=== PATIENT | male | born 1965 | race Caucasian/White ===

== ENCOUNTER 2016-12-28 09:19 | Emergency (ER) | payer OTHER ==
[~2016-12-28] VITALS: Ht 172.7 cm; Wt 83.9 kg
--- NOTE | 2016-12-28 09:19 | NUR ---
BROUGHT BACK TO BED #[address] SUTTON AT BEDSIDE UPON ARRIVAL. TRIAGED AND REPORT GIVEN TO RUPAL
[2016-12-28 09:20] VITALS: BP 152/104; PULSE 60; RESP 18; TEMP 98.1; O2SAT 97
--- NOTE | 2016-12-28 09:30 | NUR ---
Pt presents to ED c/o R sided rib pain and bruising R side s/p fall from ladder. Pt reports feeling crepitus on R ribs. Affected areas tender to touch. Pt denies med hx. # 18 gauge angiocath placed to LAC. Use of asceptic technique. Opsite placed over site. Blood return noted. Blood for lab drawn from site. Flushed with 10 cc of normal saline. No evidence of infiltration noted. Patient tolerated well.
--- NOTE | 2016-12-28 10:00 | NUR ---
Urine specimen collected sent to Lab.
[2016-12-28 10:01] LABS: BASOPHILS # (AUTO) 0.2 K/uL (0.0-0.2); BASOPHILS % (AUTO) 2.3 % (0.0-2.0); EOSINOPHILS # (AUTO) 0.3 K/uL (0.0-0.4); HEMATOCRIT 48.3 % (36-54); HEMOGLOBIN 15.4 g/dL (14.0-18.0); LYMPHOCYTES # (AUTO) 2.5 K/uL (1.0-5.5); MEAN CORPUSCULAR HEMOGLOBIN 29 pg (27-31); MEAN CORPUSCULAR HGB CONC 32 % (32-36); MEAN CORPUSCULAR VOLUME 92 fL (79.0-98.0); MONOCYTES # (AUTO) 0.9 K/uL (0.0-1.0); MONOCYTES % (AUTO) 11.5 % (1.7-9.3); NEUTROPHILS # (AUTO) 3.5 K/uL (1.8-7.7); NEUTROPHILS % (AUTO) 48.2 % (40.0-70.0); PLATELET COUNT (AUTO) 423 K/uL (130-430); RED BLOOD CELL COUNT(AUTO) 5.25 MIL/uL (4.2-6.2); RED CELL DISTRIBUTION WIDTH 13.3 % (9.0-15.0); WHITE BLOOD COUNT (AUTO) 7.4 K/uL (4.8-10.8)
[2016-12-28 10:07] LABS: CALCIUM 9.7 mg/dL (8.4-11.0); CREATININE 0.95 mg/dL (0.55-1.30); POTASSIUM 4.2 mmol/L (3.5-5.1)
[2016-12-28] MEDS ORDERED: IOHEXOL 100 ML IV ONE (10:10)
[2016-12-28 10:11] LABS: PROTHROMBIN TIME 10.4 SECS (9.5-12.5)
[2016-12-28 10:12] LABS: TOTAL BILIRUBIN 0.5 mg/dL (0.0-1.0); TOTAL PROTEIN, SERUM 8.5 g/dL (6.4-8.3)
--- NOTE | 2016-12-28 10:12 | NUR ---
TAKEN TO RADIOLOGY VIA AMBULATORY
--- NOTE | 2016-12-28 10:25 | NUR ---
Pt returned from rad dept tolerated well.
[2016-12-28 10:46] LABS: BILIRUBIN,URINE NEGATIVE (NEGATIVE); BLOOD, URINE NEGATIVE (NEGATIVE); CLARITY/URINE CLEAR (CLEAR); COLOR,URINE YELLOW (YELLOW); GLUCOSE,URINE NEGATIVE (NEGATIVE); KETONES,URINE NEGATIVE (NEGATIVE); LEUKOCYTE ESTERASE ,URINE NEGATIVE (NEGATIVE); NITRITE, URINE NEGATIVE (NEGATIVE); PH,URINE 5.5 (5.0-8.0); PROTEIN URINE NEGATIVE (NEGATIVE); UROBILINOGEN,URINE 0.2 (0.2-1.0)
--- NOTE | 2016-12-28 11:15 | NUR ---
Pt reports pain tolerable in seated position.
[2016-12-28 11:37] VITALS: BP 142/72; PULSE 81; RESP 19; TEMP 98.2; O2SAT 99
--- NOTE | 2016-12-28 11:38 | NUR ---
Patient given written and verbal discharge instructions and verbalizes understanding. ER MD discussed with patient the results and treatment provided. Given copies of tests performed in ER. Patient in stable condition. ID arm band removed. IV catheter removed intact and dressing applied, no active bleeding. Rx of IBUPROFEN given. Patient educated on pain management and to follow up with PMD. Pain Scale 0/10. Opportunity for questions provided and answered.
== END 2016-12-28 11:37 | disposition home or self-care (01) ==
LOC: SED 09:19
DX: S22.41XA Multiple fractures of ribs, right side, initial encounter for closed fracture (principal); S30.0XXA Contusion of lower back and pelvis, initial encounter; W11.XXXA Fall on and from ladder, initial encounter; Y93.89 Activity, other specified; Y92.89 Other specified places as the place of occurrence of the external cause; Y99.8 Other external cause status
CPT/HCPCS: 36415; 71260; 74177; 80053; 81003; 83690; 85025; 85610; 85730; 99285; Q9967